=== PATIENT | female | born 1980 | race Hispanic/Latino ===

== ENCOUNTER → 2017-03-18 | Day surgery (SDC) | payer OTHER ==
--- NOTE | 2017-03-17 12:59 | History & Physical Pre-Op ---
General Information and HPI History of Present Illness: Patient is a 37-year-old 2 para 2 presents today for surgical treatment of a large paramedian [place]. She states that she has no sexual pleasure with intercourse secondary to a lax vagina and wishes to have this repaired. Past History Surgical History Pertinent Surgical History: none Review of Systems Review of Systems Constitutional: Reports: see HPI. EENTM: Reports: no symptoms. Cardiovascular: Reports: no symptoms. Respiratory: Reports: no symptoms. GI: Reports: no symptoms. Genitourinary: Reports: see HPI. Musculoskeletal: Reports: no symptoms. Skin: Reports: no symptoms. Neurological/Psychological: Reports: no symptoms. Hematologic/Endocrine: Reports: no symptoms. Immunologic/Allergic: Reports: no symptoms. All Other Systems: Reviewed and Negative Exam & Diagnostic Data Physical Exam: HEENT: Normocephalic atraumatic Chest: Clear to auscultation bilaterally Cardiovascular: Normal S1-S2 Abdomen: Soft nontender no mass Pelvic: Lacks introitus fibroelastic vagina Extremities: No clubbing cyanosis or edema Assessment/Plan Assessment/Plan: Perineocele Repair of perineocele As Ranked By This Provider Problem List: 1. Perineocele
[~2017-03-18] VITALS: Ht 175.3 cm; Wt 90.7 kg
--- NOTE | 2017-03-18 14:20 | RADIOLOGY REPORT ---
EXAMINATION: XR PELVIS CLINICAL INFORMATION: Missing needle during surgery. COMPARISON: There are no prior studies for comparison. TECHNIQUE: AP view of the pelvis. FINDINGS: An IUD is present projecting over the central portion of the pelvis. No additional radiopaque foreign bodies are identified throughout. Gas and fecal material is present in the rectosigmoid region. The bony structures are unremarkable. IMPRESSION: No radiopaque foreign body is identified, other than the IUD present in the central portion of the pelvis.
--- NOTE | 2017-03-19 10:41 | Operative Report ---
Operative/Inv Procedure Report Surgery Date: 03/18/17 Name of Procedure: Perineocele repair Pre-Operative Diagnosis: Perineocele Post-Operative Diagnosis: Same Estimated Blood Loss: less than 50ml Surgeon/Tube Knitter: Devang Black MD Anesthesia: laryngeal mask airway Operative/Procedure Note Note: The patient was brought to the operating room and placed on the OR table in the dorsal supine position. She was given adequate anesthesia and a LMA mask. She was then repositioned into modified dorsal lithotomy and prepped and draped in usual sterile fashion. Examination revealed a large perineocelel and lax vagina on the field. Perineum was injected with 1% lidocaine with epinephrine and a reverse aakash or triangle shape. The vaginal wall is well was given local anesthetic in similar fashion. 2 Allis clamps were placed at the 4 and 8:00 positions of the introitus and traction was placed. A downward aakash incision was made in the perineum and forward aakash into the vaginal vault. Overlying tissue was sharply dissected off of the underlying muscle and connective tissue. This was then sent to pathology. The bulbocavernosus muscles were reapproximated using a [id number] suture of 0 Polysorb. The vagina was reapproximated with 2-0 Polysorb in a running nonlocking fashion. The peritoneum was then reapproximated with 0 Polysorb interrupted and second layer of the continuation from the vagina of the 3-0 Polysorb in a subcuticular fashion. Hemostasis was good at the end of the case opening dressing was placed on the perineum as well as a pad the patient was then awakened and sent to recovery in good condition. All needle, sponge, and instrument counts were correct at the end of the procedure 2.
== END ==
LOC: STS 01:59
DX: N81.81 Perineocele (principal); N81.89 Other female genital prolapse
CPT/HCPCS: 72170; 81025; 88305; J0690; J2250